=== PATIENT | male | born 1980 | race Caucasian/White ===

== ENCOUNTER 2024-03-22 23:57 | Inpatient (IN) | payer SELFPAY ==
[2024-03-23 00:04] VITALS: BP 132/80; PULSE 83; RESP 18; TEMP 36.9; O2SAT 96
[2024-03-23 00:06] VITALS: BMI 33.7
[2024-03-23 00:30] VITALS: BP 126/78; PULSE 74; RESP 18; TEMP 36.8; O2SAT 96
[2024-03-23 06:00] VITALS: BP 137/77; PULSE 100; RESP 18; TEMP 37.1; O2SAT 95
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
[2024-03-23 14:00] VITALS: BP 121/78; PULSE 75; RESP 20; TEMP 36.8; O2SAT 96
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
[2024-03-23 20:04] VITALS: BP 147/83; PULSE 65; RESP 19; TEMP 37.1; O2SAT 96
[2024-03-24 06:00] VITALS: BP 102/69; PULSE 82; RESP 17; TEMP 37; O2SAT 96
[2024-03-24] MEDS: escitalopram 10 mg Tablet PO (08:10)
[2024-03-24 14:00] VITALS: BP 120/76; PULSE 72; RESP 20; TEMP 37.1; O2SAT 98
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
[2024-03-24 15:50] VITALS: BP 120/76; PULSE 72; RESP 20; TEMP 37.1; O2SAT 98
== END 2024-03-24 14:00 | disposition home or self-care (01) | DRG 881 ==
PROVIDERS: Admitting Provider Psychiatry & Neurology Psychiatry; Visit Provider Psychiatry & Neurology Psychiatry
DX: F32.A Depression, unspecified (principal); R45.851 Suicidal ideations; R44.0 Auditory hallucinations; Z91.51 Personal history of suicidal behavior
CPT/HCPCS: 97150; 97165